=== PATIENT | female | born 1960 | race Caucasian/White ===

== ENCOUNTER 2017-04-18 14:36 | Emergency (ER) | payer OTHER ==
[~2017-04-18] VITALS: Ht 172.7 cm; Wt 59.0 kg
[2017-04-18 15:00] VITALS: BP 130/89
[2017-04-18] MEDS ORDERED: PENICILLIN G BENZATHINE 2.4 MMU/4 ML ML IM ONE ×2 (16:26→16:30)
[2017-04-18] MEDS ORDERED: DEXAMETHASONE SOD PHOSPHATE 10 MG/ML VIAL ONE (16:26)
[2017-04-18] MEDS ORDERED: DEXAMETHASONE SOD PHOSPHATE 4 MG/ML VIAL IM ONE (16:30)
--- NOTE | 2017-04-18 16:34 | NUR ---
MEDICATION GIVEN ORDERED
--- NOTE | 2017-04-18 16:34 | NUR ---
AWAITING FOR VENOUS DOPPLER STUDY
== END 2017-04-18 19:27 | disposition home or self-care (01) ==
LOC: ER 14:37
DX: J02.9 Acute pharyngitis, unspecified (principal); S86.811A Strain of other muscle(s) and tendon(s) at lower leg level, right leg, initial encounter; X58.XXXA Exposure to other specified factors, initial encounter; Y93.89 Activity, other specified; Y92.89 Other specified places as the place of occurrence of the external cause; Y99.8 Other external cause status
CPT/HCPCS: 93971; 96372 ×2; 99284; A4606; J0558; J1100; Z7610

== ENCOUNTER 2017-04-20 10:16 | Emergency (ER) | payer OTHER ==
[~2017-04-20] VITALS: Ht 172.7 cm; Wt 68.0 kg
[2017-04-20 12:08] LABS: BASOPHILS # (AUTO) 0.1 /CMM (0.0-0.2); BASOPHILS % (AUTO) 0.7 % (0.0-2.0); EOSINOPHILS # (AUTO) 0.1 /CMM (0.0-0.7); EOSINOPHILS % (AUTO) 0.6 % (0.0-6.0); HEMATOCRIT 35 % (33-45); HEMOGLOBIN 12.3 g/dL (11.5-14.8); LYMPHOCYTES # (AUTO) 3.3 /CMM (0.8-4.8); LYMPHOCYTES % (AUTO) 26.3 % (20.0-44.0); MEAN CORPUSCULAR HEMOGLOBIN 30 PG (26.0-33.0); MEAN CORPUSCULAR HGB CONC 35 g/dl (31.0-36.0); MEAN CORPUSCULAR VOLUME 87 fL (82-100); MONOCYTES # (AUTO) 0.5 /CMM (0.1-1.30); MONOCYTES % (AUTO) 3.9 % (2.0-12.0); NEUTROPHILS # (AUTO) 8.6 /CMM (1.8-8.9); NEUTROPHILS % (AUTO) 68.5 % (43.0-81.0); PLATELET COUNT (AUTO) 357 /CMM (150-450); RDW COEFFICIENT OF VARIATION 12.6 (11.5-15.0); RED BLOOD CELL COUNT(AUTO) 4.07 MIL/uL (4.0-5.2); WHITE BLOOD COUNT (AUTO) 12.6 K/uL (4.3-11.0)
[2017-04-20] MEDS ORDERED: CT SWABBABLE VALVE TRANS SET 1 EA INFUS.SET MC ONE (12:16)
[2017-04-20] MEDS ORDERED: IOHEXOL-300 100 ML VIAL IV ONE (12:16)
[2017-04-20] MEDS ORDERED: IV NS 0.9% 250 ML IV ONE (12:17)
[2017-04-20 12:18] LABS: CALCIUM, SERUM 9.1 mg/dL (8.5-10.1); CREATININE 0.8 mg/dL (0.6-1.3); POTASSIUM 4.3 mmol/L (3.5-5.1)
--- NOTE | 2017-04-20 14:04 | NUR ---
IV removed. Catheter intact and site benign. Pressure and 4x4 applied to site. No bleeding noted.
[2017-04-20 14:13] VITALS: BP 101/75
--- NOTE | 2017-04-20 14:14 | NUR ---
Patient discharged to home in stable condition. Written and verbal after care instructions given. Patient verbalizes understanding of instruction.
== END 2017-04-20 14:15 | disposition home or self-care (01) ==
LOC: ER 10:17
DX: R59.0 Localized enlarged lymph nodes (principal)
CPT/HCPCS: 36415; 70487-TC; 80048-TC; 85025-TC; A4606; J7050; Q9967; Z7610

== ENCOUNTER 2019-04-13 06:18 | Emergency (ER) | payer BC, OTHER ==
[~2019-04-13] VITALS: Ht 172.7 cm; Wt 70.3 kg
[2019-04-13] MEDS ORDERED: ACETAMINOPHEN ES 500 MG TABLET PO ONE (06:30)
[2019-04-13] MEDS ORDERED: IBUPROFEN 600 MG TABLET PO ONE ×2 (06:30→06:39)
[2019-04-13] MEDS ORDERED: ACETAMINOPHEN ES 500 MG TABLET ONE (06:39)
[2019-04-13] MEDS ORDERED: ONDANSETRON 4 MG TAB.RAPDIS ONE (06:39)
[2019-04-13] MEDS ORDERED: GUAIFENESIN/D-METHORPHAN HB 5 ML UDC ONE (06:41)
--- NOTE | 2019-04-13 06:45 | NUR ---
HIREN W/ FAMILY FROM HOME TO ER BED 9. AAOX4. NO RESP DISTRESS NOTED, BREATHING EVEN AND UNLABORED. AMBULATORY. C/O FLULIKE SYMPTOMS SINCE YESTERDAY. PT REPORTS THAT SHE STARTED HAVING SCOUGH YESTERDAY AND PROGGRESSIVELY GETTING WORST. PT DENIES PHLEGM. PT STATES THAT HER THROAT STARTED TO HURT AND STARTED TO HAVE FEVER. PT REPORTS TAKING AZITHROMYCIN TODAY X 1 DOSE. PT DENIES TAKING ANY OTHER MEDS FOR FEVER. PT ALSO REPORTS NAUSEA. MD WAS AT BEDSIDE FOR EVAL. ORDERS RECEIVED, NOTED AND CARRIED OUT.
--- NOTE | 2019-04-13 06:52 | NUR ---
FLU SWAB DONE AND SENT TO LAB
[2019-04-13] MEDS ORDERED: ONDANSETRON 4 MG TAB.RAPDIS SL ONE (07:00)
[2019-04-13] MEDS ORDERED: GUAIFENESIN/D-METHORPHAN HB 5 ML UDC PO ONE (07:00)
[2019-04-13 07:46] VITALS: BP 118/80
--- NOTE | 2019-04-13 07:46 | NUR ---
Patient discharged to home in stable condition. Written and verbal after care instructions given. Patient verbalizes understanding of instruction. Pt ambulatory with a steady gait
== END 2019-04-13 07:47 | disposition home or self-care (01) ==
LOC: ER 06:20
DX: J10.1 Influenza due to other identified influenza virus with other respiratory manifestations (principal); Z98.890 Other specified postprocedural states
CPT/HCPCS: 87804 ×2; 99284; Q0162

== ENCOUNTER 2019-09-29 12:07 | Emergency (ER) | payer BC, OTHER ==
[~2019-09-29] VITALS: Ht 172.7 cm; Wt 72.1 kg
--- NOTE | 2019-09-29 12:18 | NUR ---
CAME IN FOR DIZZINESS, ABDOMINAL DISCOMFORT W/ NAUSEA SINCE YESTERDAY, TO ER BED 10, HOOKED TO MONITOR, CHANGED TO HOSP GOWN, WARM BLANKET PROVIDED, PATIENT AAO x 4, BREATHING EVEN AND UNLABORED, AWAITING MD TRIPATHI.
--- NOTE | 2019-09-29 12:42 | NUR ---
DR COY AT BEDSIDE
[2019-09-29] MEDS ORDERED: ONDANSETRON HCL/PF 4 MG/2 ML VIAL ONE (12:45)
[2019-09-29] MEDS ORDERED: MECLIZINE HCL 25 MG TABLET ONE ×2 (12:45→13:54)
[2019-09-29] MEDS ORDERED: ONDANSETRON HCL/PF - ER 4 MG/2 ML VIAL IV ONE (13:00)
[2019-09-29] MEDS ORDERED: IV NS 0.9% 1,000 ML IV ONE (13:00)
[2019-09-29] MEDS ORDERED: MECLIZINE HCL 12.5 MG TABLET PO ONE ×2 (13:00→14:00)
--- NOTE | 2019-09-29 13:52 | NUR ---
PATIENT VERBALIZES THAT STILL FEELS DIZZY. AWARE
[2019-09-29 14:57] LABS: BASOPHILS % (AUTO) 0.5 % (0.0-2.0); EOSINOPHILS % (AUTO) 2.1 % (0.0-6.0); HEMATOCRIT 41 % (33-45); HEMOGLOBIN 13.4 g/dL (11.5-14.8); MEAN CORPUSCULAR HGB CONC 33 g/dl (31.0-36.0); MEAN CORPUSCULAR VOLUME 91 fL (82-100); MONOCYTES # (AUTO) 0.4 /CMM (0.1-1.30); MONOCYTES % (AUTO) 4.6 % (2.0-12.0); NEUTROPHILS # (AUTO) 6.1 /CMM (1.8-8.9); NEUTROPHILS % (AUTO) 69.8 % (43.0-81.0); PLATELET COUNT (AUTO) 268 /CMM (150-450); RED BLOOD CELL COUNT(AUTO) 4.52 MIL/uL (4.0-5.2); WHITE BLOOD COUNT (AUTO) 8.8 K/uL (4.3-11.0)
[2019-09-29 15:00] LABS: CALCIUM, SERUM 9.4 mg/dL (8.5-10.1); CREATININE 0.9 mg/dL (0.6-1.3); POTASSIUM 3.7 mmol/L (3.5-5.1)
[2019-09-29] MEDS ORDERED: LORAZEPAM INJ 2 MG/ML VIAL IV ONE (15:00)
[2019-09-29] MEDS ORDERED: LORAZEPAM INJ 2 MG/ML VIAL ONE (15:09)
[2019-09-29 15:12] LABS: ALBUMIN 3.9 g/dL (3.4-5.0); BILIRUBIN,DIRECT 0.1 mg/dL (0.0-0.2); BILIRUBIN,TOTAL 0.4 mg/dL (0.2-1.0); TOTAL PROTEIN, SERUM 7.2 g/dL (6.4-8.2)
--- NOTE | 2019-09-29 16:41 | NUR ---
IV removed. Catheter intact and site benign. Pressure and 4x4 applied to site. No bleeding noted. Patient discharged in stable condition. Patient assisted to waiting room where is going to pick her up. Written and verbal after care instructions given. Patient verbalizes understanding of instruction.
[2019-09-29 16:45] VITALS: BP 122/64
== END 2019-09-29 16:45 | disposition home or self-care (01) ==
LOC: ER 12:07
DX: H81.10 Benign paroxysmal vertigo, unspecified ear (principal); Z98.890 Other specified postprocedural states
CPT/HCPCS: 36415; 80048; 80076; 83690; 85025; 96361; 96374; 96375; 99284; J2060; J2405; J7030; J8597 ×2

== ENCOUNTER 2022-10-14 00:48 | Emergency (ER) | payer BC ==
[~2022-10-14] VITALS: Ht 172.7 cm; Wt 65.8 kg
[2022-10-14 01:44] VITALS: BP 118/72; TEMP 97.7
--- NOTE | 2022-10-14 01:44 | NUR ---
PEE FROM HOME C/O REDNESS & PAIN TO R 5TH TOE X10 DAYS AGO. STARTED GENTAMYCIN CREAM 2 DAYS AGO. A/OX4. TOLERATING R/A WELL WITH NO RESP DISTRESS. SAFETY MEASURES IN PLACE.
--- NOTE | 2022-10-14 01:55 | NUR ---
DR ELADIO CRUZ AT PT'S BEDSIDE FOR EVAL
[2022-10-14] MEDS ORDERED: CEPH500C2 PO (02:01)
[2022-10-14] MEDS ORDERED: CLOT12CR TP (02:01)
--- NOTE | 2022-10-14 02:14 | NUR ---
Patient discharged to home in stable condition. RX Written and verbal after care instructions given. Patient verbalizes understanding of instruction.
== END 2022-10-14 02:15 | disposition home or self-care (01) ==
LOC: ER 01:10
DX: L03.031 Cellulitis of right toe (principal); Z79.899 Other long term (current) drug therapy

== ENCOUNTER 2024-07-05 16:38 | Emergency (ER) | payer BC ==
[~2024-07-05] VITALS: Ht 172.7 cm; Wt 69.4 kg
[~2024-07-05 16:38] MED LIST: CEPH500C2 PO; CLOT12CR TP
[2024-07-05] MEDS ORDERED: BENZONATATE 100 MG CAPSULE PO ONE (17:19)
[2024-07-05] MEDS: BENZONATATE 100 MG CAPSULE PO PRN (17:22)
[2024-07-05] MEDS ORDERED: BENZ-13 PO (19:00)
[2024-07-05 19:04] VITALS: BP 128/89; TEMP 98.3; O2SAT 99
== END 2024-07-05 19:05 | disposition home or self-care (01) ==
LOC: ER 16:50
DX: J06.9 Acute upper respiratory infection, unspecified (principal); B97.89 Other viral agents as the cause of diseases classified elsewhere; E78.5 Hyperlipidemia, unspecified; Z79.2 Long term (current) use of antibiotics; Z87.891 Personal history of nicotine dependence
CPT/HCPCS: 71045-TC